=== PATIENT | male | born 1975 | race African-American/Black ===

== ENCOUNTER 2018-01-25 11:49 | Emergency (ER) | payer OTHER ==
[~2018-01-25] VITALS: Ht 172.7 cm; Wt 51.9 kg
[2018-01-25 11:52] VITALS: TEMP 37; Ht 172.7 cm; Wt 51.9 kg
[2018-01-25] MEDS ORDERED: DiphenhydrAMINE HCL 50 MG/ML VIAL IV STA (12:18)
[2018-01-25] MEDS ORDERED: DEXAMETHASONE INJ 10 MG in SYRINGE 0 ML IV STA (12:18)
[2018-01-25] MEDS ORDERED: DEXAMETHASONE SOD INJ 10 MG/ML VIAL ONE (12:42)
[2018-01-25 12:50] VITALS: O2SAT 98
[2018-01-25] MEDS ORDERED: EPP3/2 IM (14:05)
[2018-01-25] MEDS ORDERED: PRED20TA2 PO (14:05)
--- NOTE | 2018-01-25 14:07 | EMERGENCY ROOM VISIT NOTE ---
History First contact with patient: 12:12 Chief Complaint: ARM PAIN Stated Complaint: SWOLLEN L ARM AND HAND History of Present Illness The patient is a 42 year old male who presents to the Emergency Room via private vehicle with complaints of "swollen left arm and hand". The patient states that he was stung by an insect in the left ventral midforearm yesterday and now has pain and swelling. He states that he took 100 mg of Benadryl over the course of the late evening yesterday. It was with minimal relief. He rates the pain as an 8/10. He denies any fevers or chills. He is right- handed. Tetanus is up-to-date. Review of Systems A complete 10-point Review of Systems was discussed with the patient, with pertinent positives and negatives listed in the History of Present Illness. All remaining Review of Systems questions can be considered negative unless otherwise specified. Past Medical/Surgical History No pertinent. Family History No pertinent. Social History Smoking Status: Current Every Day Smoker Patient lives locally. Current/Historical Medications Scheduled Doxycycline (Monohydrate) (Doxycycline), 100 MG PO BID Prednisone (Prednisone Tab), 2 TAB PO DAILY Scheduled PRN Epinephrine (Epipen), 0.3 MG IM UD PRN for Allergic Reaction Physical Exam Vital Signs Date Time Temp Pulse Resp B/P (MAP) Pulse Ox O2 Delivery O2 Flow Rate FiO2 01/25/18 16:14 76 18 163/103 98 Room Air 01/25/18 14:14 53 18 137/95 99 Room Air 01/25/18 12:56 62 01/25/18 12:53 61 22 143/94 98 Room Air 01/25/18 12:50 98 Room Air 01/25/18 11:52 37.0 78 18 135/87 99 Room Air Physical Exam VITAL SIGNS - Vital signs and nursing notes were reviewed. Stable. Afebrile. GENERAL -42-year-old male appearing his stated age who is in no acute distress. Communicates well with provider and answers questions appropriately. SKIN - Without rashes. There is however, circumferential edema from the patient 's left elbow region extending to the distal aspect of the left upper extremity. The skin is tense, but is not splitting nor exhibit signs of compartment syndrome. No drainage. There is a small punctate region on the mid forearm ventrally that appears to be like a small puncture/insect bite. HEAD - NC/AT. EYES - Sclera anicteric. EARS - No deformities of external structures noted on gross examination bilaterally. NOSE - Midline and without cyanosis. No epistaxis or purulent drainage noted. EXTREMITIES - No clubbing or peripheral cyanosis. No pretibial edema present. Skin findings of the left upper extremity as above. Full range of motion left upper extremity. 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 Excellent distal pulse. Good capillary refill. Medical Decision & Procedures ER Provider Diagnostic Interpretation: Left upper extremity venous Doppler ultrasound CLINICAL HISTORY: L upper distal arm edema. s/p ?insect sting COMPARISON STUDY: No previous studies for comparison. FINDINGS: The left internal jugular, subclavian, axillary, cephalic, brachial, basilic, radial and ulnar veins are patent. Subcutaneous edema of the distal lateral left forearm is noted. No fluid collection is identified. IMPRESSION: 1. No deep venous thrombus within the left upper extremity. 2. Subcutaneous edema of the distal left forearm. No fluid collection. Electronically signed by: Carson Connor M.D. 01/25/2018 3:30 PM Dictated Date/Time: 01/25/2018 3:29 PM [~ rep ct add3]] L FOREARM 2 VIEWS ROUTINE CLINICAL HISTORY: Left upper distal arm edema. s/p ?insect sting. COMPARISON: None FINDINGS: No fracture or other osseous abnormality is identified within the left radius or ulna. No radiopaque foreign bodies are identified. IMPRESSION: No osseous abnormality of the left radius or ulna. No radiopaque foreign body. Electronically signed by: Carson Connor M.D. 01/25/2018 3:08 PM Dictated Date/Time: 01/25/2018 3:07 PM Laboratory Results 01/25/18 12:30 Red Blood Count 5.33, Mean Corpuscular Volume 85.2, Mean Corpuscular Hemoglobin 28.3, Mean Corpuscular Hemoglobin Concent 33.3, Mean Platelet Volume 10.6, Neutrophils (%) (Auto) 60.8, Lymphocytes (%) (Auto) 26.4, Monocytes (%) (Auto) 9.7, Eosinophils (%) (Auto) 2.3, Basophils (%) (Auto) 0.5, Neutrophils # (Auto) 4.02, Lymphocytes # (Auto) 1.74, Monocytes # (Auto) 0.64, Eosinophils # (Auto) 0.15, Basophils # (Auto) 0.03 01/25/18 12:30 Test 01/25/18 12:30 White Blood Count 6.60 K/uL (4.8-10.8) Red Blood Count 5.33 M/uL (4.7-6.1) Hemoglobin 15.1 g/dL (14.0-18.0) Hematocrit 45.4 % (42-52) Mean Corpuscular Volume 85.2 fL (80-100) Mean Corpuscular Hemoglobin 28.3 pg (25-34) Mean Corpuscular Hemoglobin Concent 33.3 g/dl (32-36) Platelet Count 258 K/uL (130-400) Mean Platelet Volume 10.6 fL (7.4-10.4) Neutrophils (%) (Auto) 60.8 % Lymphocytes (%) (Auto) 26.4 % Monocytes (%) (Auto) 9.7 % Eosinophils (%) (Auto) 2.3 % Basophils (%) (Auto) 0.5 % Neutrophils # (Auto) 4.02 K/uL (1.4-6.5) Lymphocytes # (Auto) 1.74 K/uL (1.2-3.4) Monocytes # (Auto) 0.64 K/uL (0.11-0.59) Eosinophils # (Auto) 0.15 K/uL (0-0.5) Basophils # (Auto) 0.03 K/uL (0-0.2) RDW Standard Deviation 42.9 fL (36.4-46.3) RDW Coefficient of Variation 13.8 % (11.5-14.5) Immature Granulocyte % (Auto) 0.3 % Immature Granulocyte # (Auto) 0.02 K/uL (0.00-0.02) Anion Gap 6.0 mmol/L (3-11) Est Creatinine Clear Calc Drug Dose 72.1 ml/min Estimated GFR () 108.6 Estimated GFR (Non- 93.7 BUN/Creatinine Ratio 13.4 (10-20) Calcium Level 8.2 mg/dl (8.5-10.1) Total Bilirubin 0.8 mg/dl (0.2-1) Aspartate Amino Transf (AST/SGOT) 20 U/L (15-37) Alanine Aminotransferase (ALT/SGPT) 21 U/L (12-78) Alkaline Phosphatase 92 U/L (45-117) Total Protein 6.8 gm/dl (6.4-8.2) Albumin 3.4 gm/dl (3.4-5.0) Globulin 3.4 gm/dl (2.5-4.0) Albumin/Globulin Ratio 1.0 (0.9-2) Medications Administered Medications (Trade) Dose Ordered Sig/Samuel Route Start Time Stop Time Status Last Admin Dose Admin Diphenhydramine HCl (Benadryl Inj) 25 mg NOW STAT IV 01/25/18 12:18 01/25/18 12:20 DC 01/25/18 12:47 25 MG Dexamethasone Sodium Phosphate (Decadron Inj) 10 mg STK-MED ONCE .ROUTE 01/25/18 12:42 01/25/18 12:43 DC 01/25/18 12:47 10 MG Doxycycline Hyclate (Vibramycin Cap) 100 mg ONE STAT PO 01/25/18 16:08 01/25/18 16:10 DC 01/25/18 16:22 100 MG Medical Decision Patient was seen and evaluated as above in room D3. Review was performed of nursing notes and vital signs. After obtaining a thorough history and physical examination the above work up was performed. He presents to us today with swelling of the left upper extremity. He notes that this occurred status post being stung by an insect yesterday. He was unable to directly see the organism/ insect but believes it was an insect. He states that he now has swelling. He notes no history of allergies or anaphylaxis. He denies any trouble breathing or swallowing. I initially provided intravenous access and gave him steroid such as Decadron as well as Benadryl. I applied ice packs and recommended elevation of the extremity. I reevaluated him with minimal improvement. Attending physician also personally evaluate the patient and the decision was made to obtain x-ray as well as ultrasound to rule out foreign body as well as DVT. This was negative. I also obtain basic labs. There is no leukocytosis or evidence of infection. I do believe that continuing to treat for inflammatory process is warranted. Given that this could also begin with an infectious component I will also cover with doxycycline. Patient denied any other punctures to the arm other than the bee sting. Vital signs are stable, therefore believe he is stable for outpatient management. He is to follow-up with the family doctor or return with worsening. He notes he does not have a family doctor and I did discuss how he could obtain one and how to go up on that. He is to return here with persistence or worsening. The patient was educated upon management, educated upon todays findings/results, educated upon symptoms in which to return, had questions answered prior to discharge, and was discharged home in good condition. He will be given a short course of steroids , Benadryl as well as an EpiPen in the event that he needs this for future worsening reactions. He is also to eat foods high in calcium and potassium. Case was discussed with the attending physician. In the evaluation and treatment of this patient the following differential diagnoses were entertained: Cellulitis, allergic reaction, fracture, dislocation , injected foreign body, among others. Impression Primary Impression: Insect sting Additional Impressions: Allergic reaction Left arm swelling Cellulitis Hypokalemia Low calcium levels Departure Information Dispostion Home / Self-Care Condition GOOD Prescriptions Doxycycline (Monohydrate) (Doxycycline) 100 Mg Cap 100 MG PO BID for 10 Days, #20 TABS Prov: Clifford Ravi PA-C 01/25/18 Epinephrine (EPIPEN) 0.3 Mg/0.3 Ml Inj 0.3 MG IM UD Y for Allergic Reaction, #1 PEN 1 Refill Prov: Clifford Ravi PA-C 01/25/18 Prednisone (Prednisone Tab) 20 Mg Tab 2 TAB PO DAILY for 4 Days, #8 TAB Prov: Clifford Ravi PA-C 01/25/18 Referrals No Doctor, Assigned (PCP) Patient Instructions EpiPen Auto Injector Pa, [facility] Additional Instructions You have been treated in the Emergency Department for an Allergic Reaction and possible skin infection developing on her left arm. You have been treated and monitored in the Emergency Department appropriately. Please elevate your arm as much as possible. You have been prescribed Doxycycline to be taken as prescribed. This is an antibiotic. All antibiotics have the potential to cause diarrhea. Stop this medication and contact a medical provider if you were to develop any significant adverse side effects including: wheezing, shortness of breath, passing out, vomiting, or a diffuse rash. Always take antibiotics as directed and COMPLETE the ENTIRE course regardless of the improvement of your symptoms. Protect yourself with sunscreen while on this antibiotic as it increases your skin's sensitivity to the light and cause bad sunburns. In addition, you should be sure to take this pill after eating. Make sure the pill is completely swallowed as this medication can cause irritation to the lining of the esophagus. Do NOT drink milk or eat anything with large amounts of Calcium in them 1 hour prior to taking this medication as this will decrease the effectiveness of the medication. Your given the first dose here with the next dose being tomorrow around 4:00 PM. He will need to retrieve the remainder at a pharmacy by filling the prescription. This is 1 tablet every 12 hours. Please apply ice to your arm, but not directly on the skin for 30 minutes at a time, 5 times a day. Please do this for the next few days. If your arm would feel so tight that your skin feels like it is going to burst, it swells more, get fevers, chills, redness, cannot feel the hand please return immediately. Please return with any new/concerning symptoms. You should take Benadryl (diphenhydramine) 25-50 mg orally every 6 hours for the next 5 days. This medication is [id number] and you will NOT need a prescription to purchase this at your local pharmacy. You should continue taking the Benadryl for the COMPLETION of the 5 days. This is to prevent a rebound allergic reaction in the event that allergens are still present in your system. You have been prescribed Prednisone 40 mg to be taken orally once a day for the next 4 days. You have already received the first dose in the IV here today, therefore you do not need to take the next dose until tomorrow afternoon around 4 PM. This is an anti-inflammatory medicine to be used to help minimize your symptoms. You should take the COMPLETE course of the medication. You have been prescribed an EpiPen to be used in the case of an Emergency. Please read the packet you have been given and ask your pharmacist for instructions on proper administration. If you begin to experience the symptoms that brought you to the Emergency Department today, you should give yourself the injection and then report IMMEDIATELY to the Emergency Department for further evaluation and treatment. As with every Emergency Department visit, you should follow-up with your primary care provider in 2-3 days for reevaluation. As we discussed please call the back of your insurance card/insurance phone number to identify family doctors in the area that participate with your insurance. Please do this as soon as possible. If no one is able to reevaluate your arm in 2-3 days please return here particularly if it is no better or worse. Return to the Emergency Department if your current symptoms worsen despite treatment course outlined above, or if you develop any of the following symptoms : Fevers, chills wheezing, tongue or face swelling, tightness in your throat, shortness of breath, or fainting. Problem Qualifiers
[2018-01-25 14:22] LABS: BASO % 0.5 %; BASO ABS # 0.03 K/uL (0-0.2); EOS % 2.3 %; EOS ABS # 0.15 K/uL (0-0.5); HEMATOCRIT 45.4 % (42-52); HEMOGLOBIN 15.1 g/dL (14.0-18.0); IG# 0.02 K/uL (0.00-0.02); LYMPH % 26.4 %; LYMPH ABS # 1.74 K/uL (1.2-3.4); MEAN CELL VOLUME 85.2 fL (80-100); MEAN CORPUSCULAR HEMOGLOBIN 28.3 pg (25-34); MEAN CORPUSCULAR HGB CONC 33.3 g/dl (32-36); MEAN PLATELET VOLUME 10.6 fL (7.4-10.4); MONO % 9.7 %; MONO ABS # 0.64 K/uL (0.11-0.59); NEUT % 60.8 %; NEUT ABS # 4.02 K/uL (1.4-6.5); PLATELET COUNT 258 K/uL (130-400); RED CELL DISTRIBUTION WIDTH CV 13.8 % (11.5-14.5); RED CELL DISTRIBUTION WIDTH SD 42.9 fL (36.4-46.3)
[2018-01-25 14:36] LABS: ALBUMIN 3.4 gm/dl (3.4-5.0); CALCIUM 8.2 mg/dl (8.5-10.1); POTASSIUM 3.4 mmol/L (3.5-5.1); TOTAL PROTEIN 6.8 gm/dl (6.4-8.2)
--- NOTE | 2018-01-25 15:09 | DIAGNOSTIC IMAGING REPORT ---
L FOREARM 2 VIEWS ROUTINE CLINICAL HISTORY: Left upper distal arm edema. s/p ?insect sting. COMPARISON: None FINDINGS: No fracture or other osseous abnormality is identified within the left radius or ulna. No radiopaque foreign bodies are identified. IMPRESSION: No osseous abnormality of the left radius or ulna. No radiopaque foreign body. Electronically signed by: Carson Connor M.D. 01/25/2018 3:08 PM Dictated Date/Time: 01/25/2018 3:07 PM
--- NOTE | 2018-01-25 15:31 | DIAGNOSTIC IMAGING REPORT ---
Left upper extremity venous Doppler ultrasound CLINICAL HISTORY: L upper distal arm edema. s/p ?insect sting COMPARISON STUDY: No previous studies for comparison. FINDINGS: The left internal jugular, subclavian, axillary, cephalic, brachial, basilic, radial and ulnar veins are patent. Subcutaneous edema of the distal lateral left forearm is noted. No fluid collection is identified. IMPRESSION: 1. No deep venous thrombus within the left upper extremity. 2. Subcutaneous edema of the distal left forearm. No fluid collection. Electronically signed by: Carson Connor M.D. 01/25/2018 3:30 PM Dictated Date/Time: 01/25/2018 3:29 PM
[2018-01-25] MEDS ORDERED: DOXYCYCLINE HYCLATE 100 MG CAP PO STA (16:08)
[2018-01-25] MEDS ORDERED: DOXY-300 PO (16:10)
[2018-01-25 16:14] VITALS: BP 163/103; PULSE 76; O2SAT 98
--- NOTE | 2018-01-26 19:43 | EMERGENCY ROOM VISIT NOTE ---
ED Visit Note First contact with patient: 12:12 I have personally seen and evaluated the patient with the PA. I agree with the diagnosis and management decisions and have been personally involved in the case. X-ray and ultrasound were performed. The patient will be treated for both an allergic reaction and cellulitis as the distribution of edema and erythema does not seem typical for an insect sting. Please see JAIR Caballero's notes for further details of the history, physical and visit.
== END 2018-01-25 16:29 | disposition home or self-care (01) ==
LOC: C.EDB 11:50 → C.EDD 16:29
DX: M79.89 Other specified soft tissue disorders (principal); L03.114 Cellulitis of left upper limb; T63.481A Toxic effect of venom of other arthropod, accidental (unintentional), initial encounter; E87.6 Hypokalemia; E83.51 Hypocalcemia; F17.210 Nicotine dependence, cigarettes, uncomplicated